=== PATIENT | female | born 1965 | race African-American/Black ===

== ENCOUNTER 2018-05-24 16:41 | Emergency (ER) | payer OTHER ==
[~2018-05-24] VITALS: Ht 170.2 cm; Wt 83.9 kg
[2018-05-24] MEDS ORDERED: NKM (16:49)
[2018-05-24 16:55] VITALS: BP 152/93
--- NOTE | 2018-05-24 17:00 | NUR ---
ED Nurse Note:pt. was BIBA from home with c/o dizziness and some HTN, pt. is A/Ox4 ambulatory, she vomited earlier today
--- NOTE | 2018-05-24 17:30 | Emergency Room Report ---
History of Present Illness General Chief Complaint: Dizziness Source: Patient, EMS Present Illness HPI This is a 52-year-old female who complains of sudden onset of dizziness with generalized weakness that lasted about 2 hours. She states that she had some dizziness where she was having difficulty with walking. She denies any focal weakness. She denies any blurry vision or double vision. She denies any slurred speech. She also denies any chest pain or shortness of breath. She feels much better now. She states that her heart rate was elevated and her blood pressure was elevated. She has been told that she does have elevated blood pressure but is not on any medications for this. Allergies: Coded Allergies: No Known Allergies (Unverified , 05/24/18) Patient History Past Surgical History: none Pertinent Family History: HTN Nursing Documentation-[facility] Past Medical History: No Stated History Review of Systems All Other Systems: limited Physical Exam Vital Signs Date Time Temp Pulse Resp B/P (MAP) Pulse Ox O2 Delivery O2 Flow Rate FiO2 05/24/18 16:45 98.1 88 18 142/97 97 Room Air General Appearance: well appearing, no apparent distress Head: normocephalic, atraumatic ENT: hearing grossly normal, normal voice Neck: full range of motion, supple Respiratory: no respiratory distress, speaking full sentences Musculoskeletal: no calf tenderness Neurologic: alert, oriented x3, mannequin refinisher III-XII nml as tested, motor strength/tone normal, DTRs symmetric, sensory intact, normal gait Psychiatric: mood/affect normal Skin: no rash Medical Decision Making Diagnostic Impression: Primary Impression: Dizziness ER Course Patient presents significant complexes or risk requiring multiple bedside evaluations. Patient alert and nontoxic-appearing. No other associated symptoms. I was particularly concerned about possibility posterior circulation abnormality, acute CVA, intracranial hemorrhage, hypertensive encephalopathy. The patient did have initial blood pressure was very elevated per the paramedics. However, the private pressure has improved. She is completely asymptomatic. She is not tachypneic or tachycardic. Her repeat neurological examination is essentially unremarkable. And I feel that the patient may be discharged home with very close follow-up with her primary care physician. He did review the patient's blood work, CT scan, EKG. Laboratory Tests Test 05/24/18 17:35 White Blood Count 7.3 K/UL (4.8-10.8) Red Blood Count 4.25 M/UL (4.20-5.40) Hemoglobin 13.2 G/DL (12.0-16.0) Hematocrit 38.2 % (37.0-47.0) Mean Corpuscular Volume 90 FL (80-99) Mean Corpuscular Hemoglobin 31.0 PG (27.0-31.0) Mean Corpuscular Hemoglobin Concent 34.5 G/DL (32.0-36.0) Red Cell Distribution Width 10.5 % (11.6-14.8) L Platelet Count 226 K/UL (150-450) Mean Platelet Volume 7.0 FL (6.5-10.1) Neutrophils (%) (Auto) 80.2 % (45.0-75.0) H Lymphocytes (%) (Auto) 10.8 % (20.0-45.0) L Monocytes (%) (Auto) 7.2 % (1.0-10.0) Eosinophils (%) (Auto) 0.4 % (0.0-3.0) Basophils (%) (Auto) 1.3 % (0.0-2.0) Sodium Level 141 MMOL/L (136-145) Potassium Level 4.0 MMOL/L (3.5-5.1) Chloride Level 104 MMOL/L (98-107) Carbon Dioxide Level 27 MMOL/L (21-32) Anion Gap 10 mmol/L (5-15) Blood Urea Nitrogen 12 mg/dL (7-18) Creatinine 0.8 MG/DL (0.55-1.30) Estimate Glomerular Filtration Rate > 60 mL/min (>60) Glucose Level 109 MG/DL (74-106) H Calcium Level 9.3 MG/DL (8.5-10.1) Total Bilirubin 0.3 MG/DL (0.2-1.0) Aspartate Amino Transferase (AST) 18 U/L (15-37) Alanine Aminotransferase (ALT) 23 U/L (12-78) Alkaline Phosphatase 71 U/L (46-116) Troponin I 0.000 ng/mL (0.000-0.056) Total Protein 7.1 G/DL (6.4-8.2) Albumin 3.6 G/DL (3.4-5.0) Globulin 3.5 g/dL Albumin/Globulin Ratio 1.0 (1.0-2.7) EKG Diagnostic Results EKG Time: 17:55 Rate: normal Rhythm: NSR ST Segments: no acute changes Last Vital Signs Date Time Temp Pulse Resp B/P (MAP) Pulse Ox O2 Delivery O2 Flow Rate FiO2 05/24/18 16:57 90 18 Room Air 05/24/18 16:55 98.1 152/93 97 Disposition: HOME, SELF-CARE Condition: Stable Referrals: [facility] (PCP) Patient Instructions: MICHAEL Olmedo May 24, 2018 17:30
--- NOTE | 2018-05-24 17:37 | NUR ---
ED Nurse Note:blood sent to labs, x-ray and EKG done
--- NOTE | 2018-05-24 17:52 | NUR ---
ED Nurse Note:pt. had CT head done
[2018-05-24 18:07] LABS: BASOPHILS % (AUTO) 1.3 % (0.0-2.0); EOSINOPHILS % (AUTO) 0.4 % (0.0-3.0); HEMATOCRIT 38.2 % (37.0-47.0); HEMOGLOBIN 13.2 G/DL (12.0-16.0); LYMPHOCYTES % (AUTO) 10.8 % (20.0-45.0); MEAN CORPUSCULAR VOLUME 90 FL (80-99); MONOCYTES % (AUTO) 7.2 % (1.0-10.0); NEUTROPHILS % (AUTO) 80.2 % (45.0-75.0); PLATELET COUNT 226 K/UL (150-450); RED BLOOD COUNT 4.25 M/UL (4.20-5.40); RED CELL DISTRIBUTION WIDTH 10.5 % (11.6-14.8); WHITE BLOOD COUNT 7.3 K/UL (4.8-10.8)
--- NOTE | 2018-05-24 18:09 | Diagnostic Imaging Report ---
Indications: Sudden onset of dizziness/vertigo for 2 hours, difficulty with walking Technique: Spiral acquisitions obtained through the brain. Angled axial and coronal 5 x 5 mm slices were reconstructed. Total dose length product 1344 mGycm. CTDI vol(s) 70 mGy. Dose reduction achieved using automated exposure control Comparison: None. Findings: No acute intracranial hemorrhage or edema, mass effect, nor midline shift. Normal white differentiation. Normal size ventricles and extra axial CSF spaces. Visualized orbits are unremarkable. There is minimal ethmoid sinus disease. The mastoids are clear. Impression: Negative The CT scanner at [facility] is accredited by the [employer] and the scans are performed using protocols designed to limit radiation exposure to as low as reasonably achievable to attain images of sufficient resolution adequate for diagnostic evaluation.
--- NOTE | 2018-05-24 18:10 | Diagnostic Imaging Report ---
Indication: Dyspnea Technique: One view of the chest Comparison: none Findings: The heart is borderline enlarged. Lungs and pleural spaces are clear. Impression: Borderline cardiomegaly. No acute process
[2018-05-24 18:13] LABS: ANION GAP 10 mmol/L (5-15); BLOOD UREA NITROGEN 12 mg/dL (7-18); CALCIUM 9.3 MG/DL (8.5-10.1); CARBON DIOXIDE 27 MMOL/L (21-32); CHLORIDE 104 MMOL/L (98-107); CREATININE 0.8 MG/DL (0.55-1.30); SODIUM 141 MMOL/L (136-145)
[2018-05-24 18:19] LABS: ALANINE AMINOTRANSFERASE 23 U/L (12-78); ALBUMIN 3.6 G/DL (3.4-5.0); ALKALINE PHOSPHATASE 71 U/L (46-116); ASPARTATE AMINO TRANSFERASE 18 U/L (15-37); BILIRUBIN,TOTAL 0.3 MG/DL (0.2-1.0)
[2018-05-24 18:51] VITALS: BP 136/84
--- NOTE | 2018-05-24 18:53 | NUR ---
ER DISCHARGE NOTE: Patient is cleared to be discharged per ERMD, pt is aox4, on room air, with stable vital signs. pt was given dc and prescription instructions, pt was able to verbalize understanding, pt id band and iv site removed without complications. pt is able to ambulate with steady gait. pt took all belongings.
[2018-05-24 18:56] VITALS: BP 136/84
== END 2018-05-24 18:58 | disposition home or self-care (01) ==
LOC: EDBD 16:41 → EMR 16:55
DX: R42 Dizziness and giddiness (principal); R53.1 Weakness
CPT/HCPCS: 36415; 70450; 71045; 80053; 84484; 85025; 93005; 99284